=== PATIENT | female | born 1965 | race Caucasian/White ===

== ENCOUNTER 2021-09-16 15:18 | Emergency (ER) | payer MEDICAID ==
[~2021-09-16] VITALS: Ht 167.6 cm; Wt 61.2 kg
--- NOTE | 2021-09-16 17:15 | NUR ---
The patient is bibpa, from snf, R pinky finger fracture. Denies pain. No appaarent deformity noted. Will continue to monitor the patient.
--- NOTE | 2021-09-16 17:17 | NUR ---
SEEN AND EXAMINED BY .
--- NOTE | 2021-09-16 17:34 | NUR ---
CAUL PULLER AT BEDSIDE FOR XRAY.
[2021-09-16] MEDS ORDERED: LIDOCAINE /MPF 1% VIAL 5 ML VIAL ONE (18:46)
[2021-09-16] MEDS ORDERED: LIDOCAINE 1% INJ 50 ML MDV IJ ONE (19:00)
[2021-09-16 19:05] VITALS: BP 148/80
[2021-09-16] MEDS ORDERED: LIDOCAINE 2%-EPI 1:100,000 30 ML VIAL ONE (19:33)
[2021-09-16] MEDS ORDERED: LIDOCAINE HCL/MPF 1% 30 ML VIAL IJ ONE (19:34)
--- NOTE | 2021-09-16 19:40 | NUR ---
at bed side for reduction
--- NOTE | 2021-09-16 20:50 | NUR ---
REPORT GIVEN TO [facility]
--- NOTE | 2021-09-16 20:52 | NUR ---
[facility] TRANSPO BACK TO FACILITY. ETA: 30MIN
--- NOTE | 2021-09-16 21:40 | NUR ---
REPORT GIVEN TO EMS
--- NOTE | 2021-09-16 21:45 | NUR ---
Patient discharged to home in stable condition. Written and verbal after care instructions given. Patient verbalizes understanding of instruction.
== END 2021-09-16 23:43 | disposition home or self-care (01) ==
LOC: ER 15:25
DX: S62.616A Displaced fracture of proximal phalanx of right little finger, initial encounter for closed fracture (principal); I10 Essential (primary) hypertension; F41.9 Anxiety disorder, unspecified; F03.90 Unspecified dementia, unspecified severity, without behavioral disturbance, psychotic disturbance, mood disturbance, and anxiety; X58.XXXA Exposure to other specified factors, initial encounter; Y93.89 Activity, other specified; Y92.89 Other specified places as the place of occurrence of the external cause; Y99.8 Other external cause status
CPT/HCPCS: 26725; 73130 ×2; 99284; J3490 ×2